=== PATIENT | female | born 1980 | race Caucasian/White ===

== ENCOUNTER 2024-01-28 09:00 | Day surgery (SDC) | payer OTHER ==
[~2024-01-28] VITALS: Ht 175.3 cm; Wt 73.4 kg
[~2024-01-28 09:00] MED LIST: ALBUTEROL0.09 MG/A4 IH; CALCIUM CITRAT200 MG PO; CELEXA PO; EPA FISH OIL1000 MG PO; GLUCOSAMINE & C1 CA1 PO; LR 1,000 ML IV SCH; NEXIUM40 MG PO; Ondansetron 4 MG/2 ML VIAL IV PRN
[2024-01-28 09:58] VITALS: BP 134/77; PULSE 53; TEMP 96.6
[2024-01-28 12:00] VITALS: BP 118/70; PULSE 56; TEMP 97.5
[2024-01-28 12:15] VITALS: BP 115/71; PULSE 56
--- NOTE | 2024-01-28 12:35 | NUR ---
1200 RETURNS TO ROOM 5 PER CART. AWAKE, ALERT, RESP UNLABORED. AMBULATES TO RECLINER WITH STANDBY ASSIST. DENIES NAUSEA OR ABD PAIN. VITAL SIGNS OBTAINED. CALL LIGHT AT SIDE. IN ROOM 1215 TOLERATES PO JUICE WITHOUT NAUSEA 1220 DISCHARGE INSTRUCTIONS REVIEWED. PATIENT VERBALIZES UNDERSTANDING. COPY PROVIDED IN DISCHARGE FOLDER 1231 DRESSES SELF
== END 2024-01-28 12:35 | disposition home or self-care (01) ==
LOC: SDCO 09:00
DX: Z12.11 Encounter for screening for malignant neoplasm of colon (principal); N95.1 Menopausal and female climacteric states; L73.9 Follicular disorder, unspecified; J45.20 Mild intermittent asthma, uncomplicated; Z98.82 Breast implant status; Z83.3 Family history of diabetes mellitus
CPT/HCPCS: J2704; J7120